=== PATIENT | female | born 1990 | race Two or more races ===

== ENCOUNTER 2020-10-16 03:56 | Emergency (ER) | payer BC ==
[~2020-10-16] VITALS: Ht 152.4 cm; Wt 62.3 kg
[2020-10-16 04:27] LABS: BILIRUBIN,URINE NEGATIVE (NEG); CLARITY,URINE CLEAR; COLOR,URINE YELLOW; NITRITE,URINE NEGATIVE (NEG); PH,URINE 5.5 (<5.0-8.0); PROTEIN,URINE NEGATIVE (NEG-TRACE)
[2020-10-16 04:47] LABS: BACTERIA,URINE MODERATE /HPF (0-FEW); RBC,URINE >40 /HPF (0-2)
--- NOTE | 2020-10-16 05:02 | PHYS DOC ---
Past Medical History Past Medical History: No Pertinent History Past Surgical History: No Surgical History Smoking Status: Never Smoker Alcohol Use: None Drug Use: None General Adult EDM: Chief Complaint: VAGINAL BLEEDING HPI: HPI: Patient is a 30 year old A1 female who is approximately 15 weeks gestation presents with abdominal pain and vaginal bleeding. Patient states she went to the bathroom at work and noticed a blood clot and some blood mixed with her urine. She has had some associated pelvic cramping and lower back pain since the bleeding began. She is currently not experiencing any pain while lying in bed but has a moderate amount of pain when she is walking around. Patient had a similar episode of vaginal bleeding and pelvic cramping about 2 weeks ago which prompted her to visit her Health Unit Clerk. At that time an ultrasound was performed and was unremarkable showing a viable intrauterine . Her Health Unit Clerk recommended bed rest for 1-week which the patient states she complied with. 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 She denies any urinary discomfort, fever, or headache. O Positive blood type Review of Systems: Review of Systems: Constitutional: Denies fever or chills. [] Eyes: Denies change in visual acuity. [] HENT: Denies nasal congestion or sore throat. [] Respiratory: Denies cough or shortness of breath. [] Cardiovascular: Denies chest pain or edema. [] GI: Denies nausea, vomiting, bloody stools or diarrhea. [Positive for abdominal pain] : Denies dysuria. [] Musculoskeletal: Denies joint pain. [Positive for back pain] Integument: Denies rash. [] Neurologic: Denies headache, focal weakness or sensory changes. [] Endocrine: Denies polyuria or polydipsia. [] Heart Score: Risk Factors: Risk Factors: DM, Current or recent (<one month) smoker, HTN, HLP, family history of CAD, obesity. Risk Scores: Score 0 - 3: 2.5% MACE over next 6 weeks - Discharge Home Score 4 - 6: 20.3% MACE over next 6 weeks - Admit for Clinical Observation Score 7 - 10: 72.7% MACE over next 6 weeks - Early Invasive Strategies Allergies: Allergies: Allergies Coded Allergies Type Severity Reaction Last Updated Verified No Known Drug Allergies 03/14/15 No Physical Exam: PE: Constitutional: Well developed, well nourished, no acute distress, non-toxic appearance. [] HENT: Normocephalic, atraumatic, bilateral external ears normal, oropharynx moist, no oral exudates, nose normal. [] Eyes: PERRLA, EOMI, conjunctiva normal, no discharge. [] Neck: Normal range of motion, no tenderness, supple, no stridor. [] Cardiovascular:Heart rate regular rhythm, no murmur [] Lungs & Thorax: Bilateral breath sounds clear to auscultation [] Abdomen: Bowel sounds normal, soft, no tenderness, no masses, no pulsatile masses. [] Skin: Warm, dry, no erythema, no rash. [] Back: No tenderness, no CVA tenderness. [] Extremities: No tenderness, no cyanosis, no clubbing, ROM intact, no edema. [] Neurologic: Alert and oriented X 3, normal motor function, normal sensory function, no focal deficits noted. [] Psychologic: Affect normal, judgement normal, mood normal. [] Current Patient Data: Labs: Laboratory Tests Test 10/16/20 04:15 POC Urine HCG, Qualitative Hcg positive (Negative) Vital Signs: Vital Signs Date Time Temp Pulse Resp B/P (MAP) Pulse Ox O2 Delivery O2 Flow Rate FiO2 10/16/20 03:56 98.6 81 18 118/61 (80) 98 Room Air 98.6 EKG: EKG: [] Radiology/Procedures: Radiology/Procedures: [] Impression: FINDINGS: Single live intrauterine gestation in variable presentation with heart rate 149 bpm. Sonographic estimated gestational age 15 weeks 3 days based on composite of biparietal diameter 3.0 cm, head circumference 11.6 cm, abdominal circumference 10.4 cm, and femur length 1.7 cm. movement, cardiac activity, cord insertion, and stomach visualized. Right posterolateral placenta without evidence of abruption. Amniotic fluid volume appears within normal limits. Cervical length 4.1 cm. Incidentally noted linear nonshadowing echogenicity adjacent to the internal cervical os, nonspecific and of unclear clinical significance. IMPRESSION: Single live intrauterine gestation with sonographic estimated gestational age 15 weeks 3 days and estimated date of delivery 04/06/2021. Course & Med Decision Making: Course & Med Decision Making Pertinent Labs and Imaging studies reviewed. (See chart for details) [] Patient was evaluated for chief complaint. Work-up consisted of laboratory analysis and radiologic imaging. Results reviewed and discussed with patient and family. Single living IUP heart rate 150s. Patient was discharged home with instructions to follow-up with her CATH LABORATORY TECHNICIAN. Minh Disclaimer: Minh Disclaimer: This electronic medical record was generated, in whole or in part, using a voice recognition dictation system. Departure Departure Impression: Primary Impression: Vaginal bleeding in Additional Impression: Threatened Disposition: 01 DC HOME SELF CARE/HOMELESS Condition: STABLE Referrals: NO PCP (PCP) Patient Instructions: Threatened Miscarriage, Vaginal Bleeding During , Second Trimester MARINE CAMPBELL DO Oct 16, 2020 05:02
[2020-10-16 05:11] LABS: BASO % 0 % (0-3); EOS # 0.2 x10^3/uL (0.0-0.7); EOS % 2 % (0-3); HEMATOCRIT 34.7 % (36.0-47.0); LYMPH # 2.8 x10^3/uL (1.0-4.8); LYMPH % 32 % (24-48); MEAN CORPUSCULAR HEMOGLOBIN 29 pg (25-35); MEAN CORPUSCULAR HGB CONC 35 g/dL (31-37); MEAN CORPUSCULAR VOLUME 85 fL (79-100); MONO # 0.7 x10^3/uL (0.0-1.1); MONO % 8 % (0-9); NEUT % 58 % (31-73); PLATELET COUNT 188 x10^3/uL (140-400); RED CELL DISTRIBUTION WIDTH 13.5 % (11.5-14.5); WHITE BLOOD COUNT 8.6 x10^3/uL (4.0-11.0)
[2020-10-16 05:13] VITALS: BP 101/62
--- NOTE | 2020-10-16 05:20 | RAD ---
EXAMINATION: PREG MORE THAN OR EQ TO 14 WKS (FIRST TRIMESTER PELVIC ULTRASOUND) CLINICAL HISTORY: Vaginal bleeding TECHNIQUE: Sonography of the pelvis was performed by transabdominal and transvaginal techniques. COMPARISON: None. FINDINGS: Single live intrauterine gestation in variable presentation with heart rate 149 bpm. Sonographic estimated gestational age 15 weeks 3 days based on composite of biparietal diameter 3.0 cm, head circumference 11.6 cm, abdominal circumference 10.4 cm, and femur length 1.7 cm. movement, cardiac activity, cord insertion, and stomach visualized. Right posterolateral placenta without evidence of abruption. Amniotic fluid volume appears within normal limits. Cervical length 4.1 cm. Incidentally noted linear nonshadowing echogenicity adjacent to the internal cervical os, nonspecific and of unclear clinical significance. IMPRESSION: Single live intrauterine gestation with sonographic estimated gestational age 15 weeks 3 days and estimated date of delivery 04/06/2021. Electronically signed by: Abilio Gutierrez DO (10/16/2020 5:17 AM) [facility]
[2020-10-16 05:25] LABS: CALCIUM 8.4 mg/dL (8.5-10.1); CREATININE 0.4 mg/dL (0.6-1.0); POTASSIUM 3.2 mmol/L (3.5-5.1)
[2020-10-16 05:32] LABS: ALBUMIN 3.1 g/dL (3.4-5.0); ALBUMIN/GLOBULIN RATIO 0.9 (1.0-1.7); TOTAL BILIRUBIN 0.2 mg/dL (0.2-1.0); TOTAL PROTEIN 6.4 g/dL (6.4-8.2)
== END 2020-10-16 05:35 | disposition home or self-care (01) ==
LOC: ER 03:56
DX: O20.0 Threatened abortion (principal); Z3A.15 15 weeks gestation of pregnancy
CPT/HCPCS: 36415; 76805; 80053; 81001; 81025; 84702; 85025; 87086; 99284